=== PATIENT | male | born 1965 | race Asian ===

== ENCOUNTER 2016-05-10 11:33 | Observation (INO) | payer OTHER ==
[2016-05-10] MEDS ORDERED: IBUPROFEN 600 MG TAB PO ONE (11:50)
--- NOTE | 2016-05-10 12:44 | EDPHY ---
H & P <Baldev Patel Jennifer - Last Filed: 05/10/16 14:08> Stated Complaint: Fell back on padded floor on Fri;back pain,headache; no LOC - Personal History Current Tetanus Diphtheria and Acellular Pertussis (TDAP): Yes - Medical/Surgical History Other PMH: neg - Social History Smoking Status: Never smoked <Amos Lopez - Last Filed: 05/10/16 15:39> Time Seen by Provider: 05/10/16 12:34 HPI/ROS: CHIEF COMPLAINT: Head injury, neck, back pain post fall from pull-up bar HISTORY OF PRESENT ILLNESS: 50-year-old male arrives via private vehicle complaining of head injury, headache, neck pain, thoracic, lumbar pain, pelvic pain after he was on a pullup bar kicking his legs forward and his hands slipped and he fell landing on his buttock and arched back and head. Incident occurred on 05/06/16. No peripheral paresthesia. No weakness. No sensory or motor deficit. No saddle anesthesia. No incontinence. No retention. No facial complaints. No nausea or vomiting. No peripheral paresthesia, weakness, numbness. REVIEW OF SYSTEMS: A ten point review of systems was performed and is negative with the exception of the items mentioned in the HPI PAST MEDICAL/SURGICAL HISTORY: no anticoagulant use, no coagulopathic disorder SOCIAL HISTORY: Nonsmoker PHYSICAL EXAM 1) GENERAL: Well-developed, well-nourished, alert and oriented. Appears to be in no acute distress. Answering questions appropriately. 2) HEAD: Normocephalic, atraumatic, no hematoma no depression 3) HEENT: Pupils equal, round, reactive to light bilaterally. Negative Horners. Nasopharynx, oropharynx, clear. No deformity or angulation of nose. No septal hematoma. No rhinorrhea. No oral trauma. Ears bilaterally with normal tympanic membranes. No hemotympanum. No fluid or blood in the external auditory canal. No raccoon eyes. No Dominguez sign. Teeth are normally aligned with no gross malocclusion, TMJ bilaterally nontender, facial bones nontender including the zygomatic arch, maxilla mandible. 4) NECK: No cervical collar is on. Patient is unable to completely differentiate between true midline pain versus just lateral of midline pain.Cervical collar is placed in the emergency department at that point. 5) LUNGS: Clear to auscultation bilaterally, no wheezes, no rhonchi, no retractions. No obvious signs of trauma. No chest wall pain. No flaring, no grunting. Moving symmetrically. No crepitus. 6) HEART: Regular rate and rhythm, 7) ABDOMEN: No guarding, no rebound, no focal tenderness, no peritoneal signs, no signs of trauma, no ecchymosis 8) MUSCULOSKELETAL: Moving all extremities, no focal areas of tenderness, no obvious trauma. 9) BACK: Unable to complete differentiate true midline versus paraspinous pain in the upper lumbar and lower thoracic region. Patella Achilles reflexes intact to bilateral strength 5/5. 10) SKIN: No laceration. No abrasion 11) NEURO: Awake, alert, and oriented to person, place and time. Answers questions appropriately. There were no obvious focal neurologic abnormalities. No cerebellar dysfunction. Normal steady gait. Upper and lower extremities bilaterally with strength 5 / 5, reflexes 2+. DIFFERENTIAL DIAGNOSIS: Not necessarily in any particular order, my differential diagnosis includes, but is not limited to, concussion, skull fracture, intraparenchymal contusion, subarachnoid, subdural and epidural hematoma. (Amos Lopez) Constitutional: Initial Vital Signs Temperature (C) 36.4 C 05/10/16 11:35 Heart Rate 63 05/10/16 11:35 Respiratory Rate 18 05/10/16 11:35 Blood Pressure 122/80 H 05/10/16 11:35 O2 Sat (%) 98 05/10/16 11:35 O2 Delivery Mode Room Air Allergies/Adverse Reactions: No Known Allergies Allergy (Unverified 05/10/16 11:37) Home Medications: Medication Instructions Recorded NK [No Known Home Meds] 05/10/16 Medical Decision Making <Baldev Patel - Last Filed: 05/10/16 14:08> <Amos Lopez - Last Filed: 05/10/16 15:39> - Diagnostics Imaging: Unenhanced CT Scan of the Brain Unenhanced CT Scan of the Cervical Spine Clinical History: 50-year-old male who fell backward Monday while doing a pull- up, and complains of a severe right-sided headache and some neck pain. Technique: Standard unenhanced axial CT images were acquired from the skull base to the skull vertex, reformatted at 5.00- and 1.25-mm increments, and reviewed in bone, brain , and subdural windows. The DFOV is 25 cm. Subsequently, a multidetector unenhanced helical CT scan was obtained from the level of the clivus to the T1 level, with images reformatted at 1.25- mm increments, and reviewed in bone, soft tissue, and lung windows. The DFOV is 16 cm. Parasagittal and paracoronal reconstructed images were acquired through the brain and cervical spine. A dose reduction protocol was used. Comparison Study: None. Findings UNENHANCED CT SCAN OF THE BRAIN: In the right temporal lobe, there is acute/ subacute intraparenchymal hemorrhage in greatest diameter measuring 3.9 x 2.9 cm transverse x 3.3 cm cephalocaudal. There is a rim of surrounding vasogenic edema. There is also a small focus of subarachnoid hemorrhage along the cortical sulci of the superior right frontal convexity (series 2, image 21), and there is a contrecoup subarachnoid hemorrhage seen over the right posterior parietooccipital junction on series 2, images 27-29. The ventricles and basilar cisterns are normal in size and symmetrical in configuration. There is no subfalcine shift. The brainstem and cerebellum appear normal. There is a normal appearance to the transverse dural venous sinuses. The craniocervical junction, sella turcica, calcified pineal gland, and the orbits are unremarkable. There is no skull fracture observed. The temporomandibular joints are anatomically aligned. Pterygoid plates, zygomatic arches, and orbital rims are intact. There is trace mucosal thickening in the anterior ethmoids, and there is an air-fluid level seen in the left maxillary sinus with a Hounsfield unit measurement of 52 which may represent some blood. There is no maxillary sinus wall fracture appreciated. The sphenoids and mastoids are patent. Impressions 1. There is an acute/subacute intraparenchymal hemorrhage involving right temporal lobe with surrounding vasogenic edema. 2. Small focus of subarachnoid hemorrhage along the anterolateral right frontal convexity and also at the level of the posterior right parietooccipital convexity. 3. There is no skull fracture or contralateral hemispheric or infratentorial hemorrhage. 4. Air-fluid level in the left maxillary sinus. Clinical correlation is suggested. UNENHANCED CT SCAN OF THE CERVICAL SPINE: There is slight straightening of the normal cervical lordosis. A minor ventral concavity at C5 appears old within the context of ventral traction osteophytes. The disk spaces are mildly narrowed at C4-C5 and C5-C6 where there are accompanying dorsal disk osteophyte complexes and some accompanying central canal stenoses which will be discussed further below. There is no acute fracture or facet malalignment. The craniocervical junction is normal. The atlantoaxial lateral mass alignment is normal, and the base and the tip of the dens are normal. The cervicothoracic alignment is maintained. The interspinous distances are appropriate. Bone mineralization is notable for a tiny bone island right lamina at C7. There is partial ossification of the nuchal ligament at the C5 level. The visualized prevertebral soft tissues are normal as are the lung apices. There is no prevertebral or epidural hematoma. The C1-C2 and C2-C3 levels are normal. At the C3-C4 level, there is mild facet hypertrophy and some uncovertebral hypertrophy resulting in mild left and mild to moderate right neural foraminal stenosis. Tiny right paracentral disk bulge is seen without significant canal stenosis. At the C4-C5 level, there is a moderate-sized dorsal disk osteophyte complex resulting in moderate central canal stenosis. Facet hypertrophy and uncovertebral hypertrophy result in moderate to severe left and moderate right neural foraminal stenosis. At the C5-C6 level, there is a left paracentral dorsal disk osteophyte complex resulting in mild to moderate left paracentral canal stenosis. Uncovertebral and facet hypertrophy result in moderate severe bilateral neural foraminal stenosis. At the C6-C7 level, there is uncovertebral hypertrophy. The neural foramina, lateral recesses, and central canal remain patent. C7-T1 level is normal. Impression: Degenerative features most pronounced at the C4-C5 and C5-C6 levels as detailed, with no acute osseous abnormality observed. Results were discussed with (Radha Lopez PA-C, at 1:55 p.m. on May 10, 2016. If there is further clinical concern regarding the patient's brain or cervical spine, MR imaging be considered. Dictated By: Alexey Holder MD Thoracic Spine, Two Views History: Fall on back Monday while working out from a chin up. Findings: Mild compression deformities of indeterminate age involving T7, T8, T9, and T10. Impression: Mild compression deformities of lower thoracic vertebral bodies for which additional imaging with MRI is recommended. Findings and recommendations discussed with Emergency Department, Kevin Lopez PA-C, at 1405 hours today. Final report concurs with initial preliminary interpretation. Dictated By: Allan Hurt Lumbar Spine, Two Views May 10, 2016 1230 hours Clinical Indication: Pain. Comparison: Bone survey February 19, 2014. Findings: There is some mild loss of the normal cervical lordosis. Disk spaces are relatively well maintained. Bone mineral density is normal. No fracture or dislocation. Mild arthritic changes at L5 -S1 facet joints. Impression: 1. Mild loss of normal cervical lordosis suggests muscular spasm. 2. Mild osteoarthritic changes in the lower lumbar spine. Dictated By: Deshawn Blackmon MD AP Pelvis May 10, 2016 1239 hours Clinical Indications: Pain. Comparison: Bone survey February 19, 2014. Findings: No fracture. No masses are found. Joints are unremarkable. Impression: Normal. Dictated By: Deshawn Blackmon MD Sacrum and Coccyx, Three Views May 10, 2016 1240 hours Comparison: February 19, 2014. Clinical Indications: Pain. Findings: A fracture is not identified. The bones have normal alignment. Soft tissues are unremarkable. Configuration of the coccyx is unchanged compared to February 19, 2014. Impression: Negative sacrum and coccyx. Dictated By: Deshawn Blackmon MD Images reviewed by myself (Amos Lopez) ED Course/Re-evaluation: 12:45 p.m.: I have evaluated this patient. He is smiling, interactive, answering questions appropriately, he is neurologically intact with primary complaint of thoracolumbar back pain after slipping off of a pull-up bar. He also impacted his head and is complaining of mild nonprogressive headache. Plan will be CT and x-ray. 1:35 pm: Patient has returned from CT and initial interpretation of the CT head by Dr. Baldev Patel and I shows an intraparenchymal hemorrhage in the right temporal region. The patient was upgraded to a full trauma activation at at this time . Patient remains with a nonfocal neurologic exam 2:00 p.m.: Dr. Maxine Plascencia in the emergency department to evaluate patient ( Amos Lopez) Other Provider: 1335: Reviewed CT findings with TYREL Lopez and personally assessed patient. He has no neurologic symptoms at this time. He will be upgraded to a full trauma activation. Neurosurgery paged. 1409: Consulted with Dr. Hawk Alonso, neurosurgeon. He will assess patient in the ED. (Baldev Patel) - Data Points Laboratory Results: Laboratory Results 05/10/16 13:45 05/10/16 13:45 05/10/16 13:45 WBC 9.53 H 10^3/uL (3.80-9.50) RBC 5.06 10^6/uL (4.40-6.38) Hgb 16.7 g/dL (13.7-17.5) Hct 47.6 % (40.0-51.0) MCV 94.1 fL (81.5-99.8) MCH 33.0 pg (27.9-34.1) MCHC 35.1 g/dL (32.4-36.7) RDW 12.0 % (11.5-15.2) Plt Count 239 10^3/uL (150-400) MPV 8.3 L fL (8.7-11.7) Neut % (Auto) 50.6 % (39.3-74.2) Lymph % (Auto) 41.2 % (15.0-45.0) [place] % (Auto) 6.8 % (4.5-13.0) Eos % (Auto) 0.7 % (0.6-7.6) Baso % (Auto) 0.5 % (0.3-1.7) Nucleat RBC Rel Count 0.0 % (0.0-0.2) Absolute Neuts (auto) 4.81 10^3/uL (1.70-6.50) Absolute Lymphs (auto) 3.93 H 10^3/uL (1.00-3.00) Absolute Monos (auto) 0.65 10^3/uL (0.30-0.80) Absolute Eos (auto) 0.07 10^3/uL (0.03-0.40) Absolute Basos (auto) 0.05 10^3/uL (0.02-0.10) Absolute Nucleated RBC 0.00 10^3/uL (0-0.01) Immature Gran % 0.2 % (0.0-1.1) Immature Gran # 0.02 10^3/uL (0.00-0.10) PT 13.7 SEC (12.0-15.0) INR 1.06 (0.83-1.16) APTT 30.3 SEC (23.0-38.0) Sodium 135 mEq/L (134-144) Potassium 4.3 mEq/L (3.5-5.2) Chloride 100 mEq/L (97-110) Carbon Dioxide 23 mEq/l (22-31) Anion Gap 12 mEq/L (8-16) BUN 10 mg/dL (7-23) Creatinine 0.7 mg/dL (0.7-1.3) Estimated GFR > 60 Glucose 96 mg/dL (70-100) Calcium 9.1 mg/dL (8.5-10.4) Medications Given: Discontinued Medications Ibuprofen (Motrin) 600 mg PO EDNOW ONE Stop: 05/10/16 11:51 Last Admin: 05/10/16 12:00 Dose: 600 mg Departure <Baldev Patel - Last Filed: 05/10/16 14:08> <Amos Lopez - Last Filed: 05/10/16 15:39> - Departure Disposition: [facility] Inpatient Acute Clinical Impression: Intraparenchymal hemorrhage of brain, Thoracic compression fracture, Activity, push-ups, pull-ups, sit-ups Condition: Fair Report Scribed for: Baldev Patel Report Scribed by: Neda Francis Date of Report: 05/10/16 Time of Report: 13:44 <Baldev Patel - Last Filed: 05/10/16 14:08>
[2016-05-10 13:56] LABS: % IMMATURE GRANULYOCYTES 0.2 % (0.0-1.1); ABSOLUTE IMMATURE GRANULOCYTES 0.02 10^3/uL (0.00-0.10); ADD DIFF? NO; ADD MORPH? NO; ADD SCAN? NO; ATYPICAL LYMPHOCYTE FLAG 20 (0-99); FRAGMENT RBC FLAG 0 (0-99); HEMATOCRIT 47.6 % (40.0-51.0); HEMOGLOBIN 16.7 g/dL (13.7-17.5); LEFT SHIFT FLG 0 (0-99); LIPEMIA HEMOLYSIS FLAG 90 (0-99); MEAN CELL HEMOGLOBIN CONCENTR. 35.1 g/dL (32.4-36.7); MEAN CELL VOLUME 94.1 fL (81.5-99.8); MEAN PLATELET VOLUME 8.3 fL (8.7-11.7); PLATELET CLUMPS FLAG 10 (0-99); PLATELET COUNT 239 10^3/uL (150-400); RED BLOOD CELL COUNT 5.06 10^6/uL (4.40-6.38)
--- NOTE | 2016-05-10 14:19 | DX ---
AP Pelvis May 10, 2016 1239 hours Clinical Indications: Pain. Comparison: Bone survey February 19, 2014. Findings: No fracture. No masses are found. Joints are unremarkable. Impression: Normal.
[2016-05-10 14:20] LABS: ANION GAP 12 mEq/L (8-16); CALCIUM 9.1 mg/dL (8.5-10.4); CARBON DIOXIDE 23 mEq/l (22-31); CHLORIDE 100 mEq/L (97-110); CREATININE 0.7 mg/dL (0.7-1.3); GLOMERULAR FILTRATION RATE > 60; GLUCOSE 96 mg/dL (70-100); POTASSIUM 4.3 mEq/L (3.5-5.2); SODIUM 135 mEq/L (134-144)
[2016-05-10 14:22] LABS: INR 1.06 (0.83-1.16); PROTIME(PATIENT) 13.7 SEC (12.0-15.0)
[2016-05-10 14:23] LABS: APTT 30.3 SEC (23.0-38.0)
[2016-05-10] MEDS ORDERED: NALOXONE HCL 0.4 MG/ML INJ IVP PRN (14:27)
[2016-05-10] MEDS ORDERED: ONDANSETRON DISINTEGRATING 4 MG TAB PO PRN (14:27)
[2016-05-10] MEDS ORDERED: ACETAMINOPHEN 325 MG TAB PO PRN (14:27)
--- NOTE | 2016-05-10 14:28 | DX ---
Sacrum and Coccyx, Three Views May 10, 2016 1240 hours Comparison: February 19, 2014. Clinical Indications: Pain. Findings: A fracture is not identified. The bones have normal alignment. Soft tissues are unremark able. Configuration of the coccyx is unchanged compared to February 19, 2014. Impression: Negative sacrum and coccyx.
--- NOTE | 2016-05-10 14:29 | CT ---
Unenhanced CT Scan of the Brain Unenhanced CT Scan of the Cervical Spine Clinical History: 50-year-old male who fell backwards [place] while doing a pull-up, and complains of a severe right-sided headache and some neck pain. Technique: Standard unenhanced axial CT images were acquired from the skull base to the skull vertex, reformatted at 5.00 and 1.25 mm increments, and reviewed in bone, brain, and subdural windows. The D FOV is 25.0 cm. Subsequently, a multidetector unenhanced helical CT scan was obtained from the level of the clivus to the T1 level, with images reformatted at 1.25 mm increments, and reviewed in bone, s oft tissue, and lung windows. The DFOV is 16.0 cm. Parasagittal and paracoronal reconstructed images were acquired through the brain and cervical spine. A dose reduction protocol was used. Comparison Study: None. Findings: UNENHANCED CT SCAN OF THE BRAIN: In the right temporal lobe, there is a subacute intraparenchymal hem orrhage measuring 3.9 x 2.9 cm (transverse diameter) x 3.3 cm (cephalocaudal). There is a rim of surr ounding vasogenic edema. There is also a small focus of subarachnoid hemorrhage along the cortical landeros lci of the superior right frontal convexity (series 2, image 21), and there is a contrecoup subarachn oid hemorrhage seen over the right posterior parietooccipital junction (on series 2, images 27-29). T he ventricles and basilar cisterns are normal in size, and symmetrical in configuration. There is no subfalcine shift. The brainstem and cerebellum appear normal. There is a normal appearance to the tra nsverse dural venous sinuses. The craniocervical junction, sella turcica, calcified pineal gland, and the orbits are unremarkable. There is no skull fracture observed. The temporomandibular joints are a natomically-aligned. The pterygoid plates, the zygomatic arches, and the orbital rims are intact. The re is trace mucosal thickening in the anterior ethmoids, and there is an air-fluid level seen in the left maxillary sinus with a Hounsfield unit measurement of 52 (which may represent some blood). There is no maxillary sinus wall fracture appreciated. The sphenoids and mastoids are patent. Impression: 1. There is an acute/subacute intraparenchymal hemorrhage involving right temporal lobe with surround ing vasogenic edema. 2. Small focus of subarachnoid hemorrhage along the anterolateral right frontal convexity and also at the level of the posterior right parietooccipital convexity. 3. There is no skull fracture, or contralateral hemispheric or infratentorial hemorrhage. 4. Air-fluid level in the left maxillary sinus. Clinical correlation is suggested. UNENHANCED CT SCAN OF THE CERVICAL SPINE: There is slight straightening of the normal cervical lordos is. A minor anterior concavity at C5 appears old within the context of ventral traction osteophytes. The disk spaces are mildly narrowed at C4-C5 and C5-C6 where there are accompanying dorsal disk osteo phyte complexes and some accompanying central canal stenoses (which will be discussed further below). There is no acute fracture or facet malalignment. The craniocervical junction is normal. The atlanto axial lateral mass alignment is normal, and the base and the tip of the dens are normal. The cervicot horacic alignment is maintained. The interspinous distances are appropriate. Bone mineralization is n otable for a tiny bone island in the right lamina at C7. There is partial ossification of the nuchal ligament at the C5 level. The visualized prevertebral soft tissues are normal, as are the lung apices. There is no prevertebral or epidural hematoma. The C1-C2 and C2-C3 levels are normal. At the C3-C4 level, there is mild facet hypertrophy and some uncovertebral hypertrophy resulting in m ild left and [id number] right neural foraminal stenosis. Tiny right paracentral disk bulge is s een, without significant canal stenosis. At the C4-C5 level, there is a moderate-sized dorsal disk osteophyte complex, resulting in moderate c entral canal stenosis. Facet hypertrophy and uncovertebral hypertrophy result in berjuukc-om-xntdua l eft and moderate right neural foraminal stenosis. At the C5-C6 level, there is a left paracentral dorsal disk osteophyte complex, resulting in mild-to- moderate left paracentral canal stenosis. Uncovertebral and facet hypertrophy result in ixucnpaj-vc-t evere bilateral neural foraminal stenosis. At the C6-C7 level, there is uncovertebral hypertrophy. The neural foramina, lateral recesses, and ce ntral canal remain patent. The C7-T1 level is normal. Impression: Degenerative features, most pronounced at the C4-C5 and C5-C6 levels as-detailed, with no acute osseous abnormality observed. Results were discussed with Kevin Lopez PA-C, at 1:55 p.m. on May 10, 2016. If there is further clinical concern regarding the patient's brain or cervical spine, MR imaging coul d be considered.
--- NOTE | 2016-05-10 14:29 | DX ---
Lumbar Spine, Two Views May 10, 2016 1230 hours Clinical Indication: Pain. Comparison: Bone survey February 19, 2014. Findings: There is some mild loss of the normal cervical lordosis. Disk spaces are relatively well ma intained. Bone mineral density is normal. No fracture or dislocation. Mild arthritic changes at L5-S1 facet joints. Impression: 1. Mild loss of normal cervical lordosis suggests muscular spasm. 2. Mild osteoarthritic changes in the lower lumbar spine.
--- NOTE | 2016-05-10 14:30 | DX ---
Thoracic Spine, Two Views History: Fall on back Monday while working out from a chin up. Findings: Mild compression deformities of indeterminate age involving T7, T8, T9, and T10. Impression: Mild compression deformities of lower thoracic vertebral bodies for which additional imag ing with MRI is recommended. Findings and recommendations discussed with Emergency Department, Kevin Lopez PA-C, at 1405 hours t hoda. Final report concurs with initial preliminary interpretation.
[2016-05-10] MEDS ORDERED: oxyCODONE IR 5 MG TAB PO PRN (15:23)
[2016-05-10 15:40] VITALS: O2SAT 96
[2016-05-10 16:00] VITALS: BP 114/63; PULSE 56; RESP 16; TEMP 97.9
[2016-05-10] MEDS ORDERED: CYCLOBENZAPRINE 10 MG TAB PO SCH (16:00)
--- NOTE | 2016-05-10 16:47 | GHP ---
[f rep st] HISTORY AND PHYSICAL DATE OF ADMISSION: 05/10/2016 CHIEF COMPLAINT: Fall with compression fracture and intraparenchymal hemorrhage. HISTORY OF PRESENT ILLNESS: Deshawn Mcqueen is a 50-year-old man who was doing pull -ups on May 06, 2016, when he fell onto his back and then struck his head. He did not lose consciousness. He did have severe headache on May 06, which improved on May 07. He was complaining of pain with walking and due to the headaches, his insisted that he be evaluated. He was brought into the ER by private vehicle and had a CT scan of his head, which showed an acute subacute intraparenchymal hemorrhage of the right temporal lobe and a small focus of subarachnoid hemorrhage along the frontal area, as well as a posterior right parietal occipital convexity. The CT of his C-spine did not show any acute injury. The plain films of his thoracic and lumbar revealed mild compression deformities of indeterminate age involving T7, T8, T9, T10. His pelvic x-ray was unremarkable. PAST MEDICAL HISTORY: None. PAST SURGICAL HISTORY: Neck surgery for a disk bulge. SOCIAL HISTORY: He is trained as a physicist, but works with financials currently. He has never smoked. He is . FAMILY HISTORY: Noncontributory. REVIEW OF SYSTEMS: 10-point review of systems negative except per HPI. PHYSICAL EXAMINATION: VITAL SIGNS: 36.6, 56, 114/63, 16, 96% room air. GENERAL: Pleasant, well-nourished, well-groomed man, lying on gurney. HEENT: Normocephalic. No gross hearing deficits. No hemotympanum. No otorrhea. No rhinorrhea. No midface instability. Teeth fit together normally. His pupils are equal, round, reactive to light and accommodation. NECK: No cervical spine tenderness. He can move with full range of motion without tenderness. CHEST: No clavicular or sternal tenderness. LUNGS: Clear to auscultation bilaterally. No increased work of breathing. ABDOMEN : Bowel sounds present. Soft, nontender, nondistended. BACK: He has no ecchymosis. He appears to be slightly swollen along the right paraspinous muscles, down at the thoracic lumbar region. No bony tenderness. NEURO: Cranial nerves 2-12 intact MUSCULOSKELETAL: 5/5 strength upper and lower extremities. SKIN: No ecchymosis, abrasions, or contusions. RESULTS REVIEWED: I personally reviewed the results of the CT scan. His sodium is normal. His white blood count is 9.53. IMPRESSION AND PLAN: Mr. Mcqueen is a 50-year-old man with a 4+ day old intraparenchymal hemorrhage and subarachnoid hemorrhage. He is neurologically intact. Since this is greater then 24 to 48 hours, the likelihood of this becoming worse over the next period of time is lower. Dr. Alonso does not think he needs a brace or other workup for the compression fractures on his thoracic spine. Supportive treatment as needed. We offered the opportunity for him to discharge home from the emergency room but since he is having difficulty ambulating, I would like for him to be admitted and seen by the physical therapist and speech therapist. If he is safe for discharge, then he may discharge later today. Tylenol for pain. I have also ordered Flexeril for muscle spasms. May have a general diet. /[id number]/MODL MTDD
--- NOTE | 2016-05-10 18:05 | SOAPPROG ---
SOAP Progress Note Assessment/Plan: Assessment: 50 yo with IPH and compression fracture from fall on 05/06. Worked with PT. Stable with walker and can do stairs. Ready for DC home. COG eval in am Plan: 05/10/16 18:05 Objective: Vital Signs Temp Pulse Resp BP Pulse Ox 36.6 C 56 L 16 114/63 96 05/10/16 15:57 05/10/16 15:57 05/10/16 15:57 05/10/16 15:57 05/10/16 15:57 05/09/16 05/10/16 05/11/16 05:59 05:59 05:59 Intake Total 60 Balance 60 PT 13.7 SEC (12.0-15.0) 05/10/16 13:45 INR 1.06 (0.83-1.16) 05/10/16 13:45 ICD10 Worksheet Patient Problems: Problems Problem Status Diagnosed Activity, push-ups, pull-ups, sit-ups Acute Intraparenchymal hemorrhage of brain Acute Thoracic compression fracture Acute
--- NOTE | 2016-05-10 19:38 | GCON ---
[f rep st] CONSULTATION EMERGENCY ROOM CONSULTATION DATE OF CONSULTATION: 05/10/2016 HISTORY OF PRESENT ILLNESS: The patient is a 50-year-old gentleman, who works in [employer], who was do ing pull-ups on May 06, 2016 when he fell on his back and struck his head. He did not lose cons ciousness but he was having a severe headache which was severe on the day that it occurred, improved somewhat on the . He was having really terrible thoracic pain when he walked and was walking wit h assistance of an IT band foam roller, and his insisted on an evaluation in the emergency room. He may have been sleeping, in fact, more than normal. PAST MEDICAL HISTORY: None. PAST SURGICAL HISTORY: Includes cervical surgery for a disc herniation. SOCIAL HISTORY: He was trained as a physicist. He does not smoke or drink. But he does work in [employer] FAMILY HISTORY: Negative for history of trauma while doing pull-ups. REVIEW OF SYSTEMS: He denies numbness, tingling, weakness in his extremities, but he is having thora cic pain. PHYSICAL EXAM: NEUROLOGIC: His eyes are open. Open his pupils both reactive to light. His extraoc ular movements are intact. His face is symmetric. Follows commands in all 4 extremities. He is suhail rt and oriented and conversant. He has a GCS of 15. CT scan of the brain was reviewed and demonstrates a large right frontotemporal traumatic contusion w ith surrounding cytotoxic edema, as well as a more high right parietal contusion and a small tentoria l subdural. ASSESSMENT: The patient is a 50-year-old gentleman who is 4 days status post a fall while doing pull -ups with significant radiographic injury to the brain, but his Candida Coma Scale score is 15. He i s doing quite well and he has already done well over a period of time. It is unclear whether or not he has any subtle cognitive, speech or other deficits which are not apparent on examination. Given t he severity of the findings on the CT scan, he will be admitted to the hospital for observation as we ll as evaluation of other therapies. He may need to consider outpatient rehab for this. Sodium was 135, and I did not see a reason necessarily to repeat the scan, but I do feel that he needs an evalua tion here in the hospital. I did not see a reason to consider additional imaging of the thoracic spi ne and bracing is not likely to be terribly useful for fractures at T7, 8, 9 and 10, although certain ly a cervicothoracic orthosis could be considered, but I do not think that it will improve his discom fort and really will have minimal biomechanical impact in the mid thoracic spine. /[id number]/MODL
--- NOTE | 2016-05-10 20:18 | GDS ---
[f rep st] DISCHARGE SUMMARY REASON FOR ADMISSION: The patient is a 50-year-old who fell on May 06, sustaining an intraparen chymal hemorrhage and a compression fracture of indeterminate age. PRIMARY DIAGNOSIS: Intraparenchymal hemorrhage and compression fracture. HOSPITAL COURSE: The patient was admitted to the floor. He worked with Physical Therapy and was abl e to ambulate safely with a walker; he did stairs. His pain was controlled. Since this injury was a t least 72 hours from the time he sustained injury to admission and his mental status had not changed , Dr. Alonso of Neurosurgery evaluated him and did not think that continued observation was necessary . He will get a speech-cog eval by phone in the morning. CONDITIONS ON DISCHARGE: 1. Ambulates with walker. 2. Pain is controlled with Tylenol. 3. He understands he cannot drive for at least 1 week. He will follow up with Dr. Alonso in 2-3 weeks with a repeat CT scan. /[id number]/MODL
== END 2016-05-10 18:51 | disposition home or self-care (01) ==
LOC: INTOOBSV 14:07 → F3N 15:54
PROVIDERS: ADMIT Surgery; ATTEND Surgery
DX: S06.6X0A Traumatic subarachnoid hemorrhage without loss of consciousness, initial encounter (principal); S22.060A Wedge compression fracture of T7-T8 vertebra, initial encounter for closed fracture; S22.070A Wedge compression fracture of T9-T10 vertebra, initial encounter for closed fracture; W17.89XA Other fall from one level to another, initial encounter; Y93.B2 Activity, push-ups, pull-ups, sit-ups; Y92.019 Unspecified place in single-family (private) house as the place of occurrence of the external cause
CPT/HCPCS: 97161-GP; G0378; L0172